=== PATIENT | female | born 2000 | race Caucasian/White ===

== ENCOUNTER 2018-04-18 18:00 | Inpatient (IN) | payer OTHER, MEDICAID ==
--- NOTE | 2018-04-18 18:48 | HP ---
General Information - Reason for Visit Spontaneous rupture of membranes at 37-4/7 weeks - General Information Maternal Age: 18 Grav: 1 Para: 0 SAB: 0 IEA: 0 Estimated Due Date: 05/05/18 Determined By: LMP Gestational Age in Weeks/Days: 37-4/7 Maternal Blood Type and Rh: A Positive - Results this Serology/RPR Result: Non-Reactive Rubella Result: Immune HBsAg Result: Negative HIV Result: Negative Past Medical History Delivery History: See Records Delivery History Comment: Primip Pertinent Past Medical History: See Records Past Medical History Comment: Childhood hx of ITP (age 5 years). Followed by serial platelet counts Pertinent Past Surgical History: None Pertinent Family History: See Records Family History Comment: Father: HTN MGM: Breast cancer - Antepartal Records Antepartal Records: Reviewed, Uncomplicated Review of Systems Constitutional: Comfortable CV Complaint: No Respiratory: Shortness of Breath: No Gastrointestinal: No Nausea/Vomiting, Normal Bowel Movement Genitourinary: Leaking Fluid - since 1709, No Dysuria, No Bleeding Musculoskeletal: No Epigastric Pain, Contractions - Mild, irregular Neurological: No Headache, No Visual Changes Movement: Normal Exam Allergies/Adverse Reactions: Allergies environmental Allergy (Unknown, Uncoded 02/02/18 23:42) Itching BP 124/98, 138/94, 135/79, 120/90 HR 100 RR 18 T 97.9 SpO2 100% on RA - Measurements Height: 5 ft Weight: 151 lb Body Mass Index (BMI): 29.5 Pre- Weight: 100 lb - Exam Breast: Breast Exam Deferred CVA: No CVA Tenderness Extremities: No Edema Heart: Normal Rhythm/Heart Sounds HEENT: No Significant Findings Lungs: Clear Bilaterally Rectal: Rectal Exam Deferred Reflexes: DTR 2+ Thyroid: No Thyromegaly - Abdominal Exam Abdomen Exam: Non-Tender - Ultrasound/Biophysical Profile Ultrasound Status: Not Done Targeted Exam Findings See L&D Outpatient Visit Provider Note for Findings: N/A Estimated Weight: EFW 6.5 lbs by Deniz Cervical Exam: 1cm Effacement: 70% Station: -1 Presenting Part: Vertex Membrane Status: SROM Amniotic Fluid Evaluation: Gross Rupture Sterile Speculum Exam: Not done Bleeding/Discharge: None EFM Findings - External Monitor Findings Baseline Heart Rate: 150 External Monitor Findings: Accelerations Present, No Pattern of Variable or Late Decelerations, Variability Moderate, Baseline Stable External Monitor Findings Comment: No evidence of metabolic acidemia Contractions: Irregular, Mild Contraction Frequency: q 4-6 min Assessment/Plan - Assessment IUP at 37-4/7 with spontaneous rupture of membranes clear fluid No evidence of metabolic acidemia Elevated BP of unknown significance - Obstetrical Risk Factors Risk Factors Comment: None - Plan Plan: Observe Plan Comment: P: Admit. Will check BP labs and follow-up per results. Continue to observe. If no onset active labor by 6-8 hours s/p SROM pt consents to augmentation PRN. Anticipate - Date/Time of Admission Date of Admission: 04/18/18 Time of Admission: 18:25
[2018-04-18 20:10] LABS: Urine Appearance Cloudy; Urine Blood Negative (Negative); Urine Color Yellow; Urine Ketones Negative (Negative); Urine Protein 1+(30 mg/dL) (Negative); Urine Red Blood Cell 2+(6-10/hpf) (Absent); Urine Specific Gravity 1.024 (1.010-1.030); Urine Urobilinogen Negative (Negative); Urine White Blood Cell Trace(0-5/hpf) (Absent)
[2018-04-18 20:19] LABS: ABS Basophils 0.1 10^3/ul (0-0.2); ABS Eosinophils 0 10^3/ul (0-0.6); ABS Lymphocytes 1.5 10^3/ul (1.0-4.8); ABS Monocytes 0.6 10^3/ul (0-0.8); ABS Neutrophils 7.2 10^3/ul (1.5-7.7); ABS Nucleated RBC 0 10^3/ul; Eosinophil % 0.3 % (0-6); Hematocrit 34 % (35-47); Hemoglobin 11.7 g/dl (12.0-16.0); Lymphocyte % 15.6 % (25-47); Mean Corpuscular HGB Conc 35 g/dl (31-36); Mean Corpuscular Hemoglobin 32 pg (27-31); Mean Corpuscular Volume 93 fL (80-97); Mean Platelet Volume 9.7 fL (7.4-10.4); Nucleated Red Blood Cells % 0.1; Platelet Count 227 10^3/ul (150-450); Red Blood Count 3.63 10^6/ul (4.00-5.40); Red Cell Distribution Width 17 % (10.5-15); White Blood Count 9.4 10^3/ul (3.5-10.8)
[2018-04-18 20:41] LABS: INR 0.81 (0.77-1.02)
[2018-04-18 20:54] LABS: EGFR Non-African American 177.6 (>60); Uric Acid 5.6 mg/dL (2.3-6.6)
[2018-04-18 21:06] LABS: Platelet Count 227 10^3/ul (150-450); Schistocytes ABSENT
--- NOTE | 2018-04-18 21:21 | PN ---
Progress Note - Progress Note Date of Service: 04/18/18 Note: S: Pt reports UCs spaced out but feel much stronger. Still leaking clear fluid. No VB or spotting. Reports +FM O: BP 122/84 HR 92 RR 16 T 97.6 FHT 140bpm. Moderate variability. +Accels. No decels UCs q 6 min VE: deferred A: IUP at 37-4/7 with SROM in early labor No evidence of metabolic acidemia P: Reassured. Discussed when we should consider a re-check of cervix in presence of rupture. Pt nervous about missing window for epidural placement. Reassurance given. Con't expectant mgmt for now.
[2018-04-19] MEDS ORDERED: OBEPIDURAL* 250 ML EPIDURAL ONE (01:56)
--- NOTE | 2018-04-19 02:27 | PN ---
Progress Note - Progress Note Date of Service: 04/19/18 Note: Late Entry/Quick Note Pt increasingly uncomfortable. Requesting pain medication. While CNM in another delivery analyst checked pt at 0120 and found her to be 3-4cm/80%/vtx -1, clear fluid. FHT 130bpm, category I. UCs q 2-5 min. RN instructed to offer pt both IV pain medication or a labor epidural. Pt requested labor epidural. CNM paged anesthesia for consult at 0145. Anesthesia at bedside for consult.
[2018-04-19] MEDS ORDERED: Famotidine TAB* 20 MG PO PRN (02:37)
[2018-04-19] MEDS ORDERED: Sodium Citrate/Citric Acid* 15 ML UDC PO PRN (02:37)
[2018-04-19] MEDS ORDERED: Phenylephrine IV* 40 MCG/ML 10 ML SYRINGE IV PUSH PRN (02:37)
[2018-04-19] MEDS ORDERED: Famotidine IV* 10 MG/ML 2 ML (20 mg) IV PRN (02:37)
[2018-04-19] MEDS ORDERED: OBEPIDURAL* 250 ML EPIDURAL SCH (03:00)
[2018-04-19] MEDS ORDERED: Oxytocin in LR* 20 UNITS/1,000 ML BAG IVPB ONE (04:34)
--- NOTE | 2018-04-19 06:01 | PN ---
Progress Note - Progress Note Date of Service: 04/19/18 Note: S: Pt comfortable s/p epidural. Able to nap. Paged to bedside by RN for review of FHT due to run of tachysystole O: BP 119/84 HR 91 T 98.4 FHT Baseline 145bpm leading into decel down to 90bpm and tracing since recovery with a baseline of 155bpm. Moderate variability. +Accels. Decel down to 90bpm x 7 min during area of tachysystole. Recovered. Occ late decels. Variability maintained UCs q 1-7 min with a coupling pattern. Area of tachysystole involved a stretch of 4 UCs in 7 min VE: 6cm/80%/vtx -1 A: IUP at 37-5/7 in labor Category II FHT P: O2 by mask, increased IV fluids, maternal position changes. Continue to monitor status closely. Dr. Arias reviewed tracing and agrees with plan at this time
--- NOTE | 2018-04-19 07:41 | PN ---
Progress Note - Progress Note Date of Service: 04/19/18 Note: S: Pt still comfortable but reports some increased pressure with UCs O: BP 124/86 HR 88 T 98.4 FHT: 145bpm. Moderate variability. +Accels. Some early type decels UCs q 2-4. Coupling and tripling seems to have resolved at this time VE: 8cm/100%/vtx -1 A: IUP at 37-5/7 in labor Cat II FHT. Doubt metabolic acidemia P: Continue to monitor maternal/ status closely. Report to Debbie Chandler CNM who will assume care at 0800
[2018-04-19] MEDS ORDERED: Bupivacaine 0.5% SDV PF* 30ML VIAL ONE (10:12)
[2018-04-19] MEDS ORDERED: Oxytocin in LR* 20 UNITS/1,000 ML BAG IVPB SCH (13:00)
[2018-04-19] MEDS ORDERED: Acetaminophen TAB* 325 MG PO PRN (14:40)
[2018-04-19] MEDS ORDERED: Glycerin ADULT SUPP PR PRN (14:40)
[2018-04-19] MEDS ORDERED: Witch Hazel PAD* JAR TOPICAL PRN (14:40)
[2018-04-19] MEDS ORDERED: Dibucaine 1% 28.35 GM TUBE PR PRN (14:40)
--- NOTE | 2018-04-19 15:11 | PROCNOTE ---
[facility] OB: Delivery Note - Delivery A Date of : 04/19/18 Time of : 14:15 [place] Sex: Female Weight at : 5 lb 12 oz Score 1 Minute: 7 Score 5 Minutes: 9 Gestational Age in Weeks and Days at Delivery: 37 Weeks and 5 Days Delivery Method: Spontaneous Vaginal Labor: Spontaneous Did Patient attempt ?: N/A, No Previous Amniotic Fluid: Clear Estimated Blood Loss: 100 Anesthesia/Analgesia: CEI for Labor Delivered By: Debbie Chandler - Nursery Level of Nursery: Regular/Bedside - Perineum Perineal Injury: Abrasion Only - Not Repaired Perineal Repair: None - Events Delivery Events of Note: Pitocin During Labor - Risk for Falls Other Risk for Falls: none - Additional Delivery Notes Additional Delivery Notes: Patient admitted with SROM and active labor. Received epidural as desired. Increased pain lead to request for anesthesia to re-bolus epidural and patient finally had excellent pain control. Progression to complete with urge to push when baby on perineum. LOL 16'52", pushed 25 min. Baby born @ 1415, OA-TAMMI and delivered to maternal lower abdomen due to short cord. HR>110. Apgars 7,9. Cord doubly clamped and cut by FOB and baby moved up to skin to skin at breast. Placenta delivered with gentle cord traction at 1422 and noted to have 3VC, membranes appear complete. Fundus firm to massage. EBL 100ml. Baby and mom stable. Baby name Susan
[2018-04-19] MEDS: Ibuprofen TAB* 600 MG PO PRN ×2 (17:41→23:44)
[2018-04-19] MEDS: Docusate CAP* 100 MG PO SCH (23:44)
[2018-04-20 07:04] LABS: ABS Basophils 0 10^3/ul (0-0.2); ABS Eosinophils 0.1 10^3/ul (0-0.6); ABS Lymphocytes 1.9 10^3/ul (1.0-4.8); ABS Monocytes 0.5 10^3/ul (0-0.8); ABS Neutrophils 7.3 10^3/ul (1.5-7.7); ABS Nucleated RBC 0 10^3/ul; Eosinophil % 0.9 % (0-6); Hematocrit 31 % (35-47); Hemoglobin 10.4 g/dl (12.0-16.0); Lymphocyte % 19.6 % (25-47); Mean Corpuscular HGB Conc 34 g/dl (31-36); Mean Corpuscular Hemoglobin 32 pg (27-31); Mean Corpuscular Volume 94 fL (80-97); Mean Platelet Volume 8.7 fL (7.4-10.4); Nucleated Red Blood Cells % 0.1; Platelet Count 169 10^3/ul (150-450); Red Blood Count 3.29 10^6/ul (4.00-5.40); Red Cell Distribution Width 17 % (10.5-15); White Blood Count 9.9 10^3/ul (3.5-10.8)
[2018-04-20] MEDS: Ibuprofen TAB* 600 MG PO PRN ×3 (07:19→20:47)
[2018-04-20] MEDS ORDERED: Ferrous Gluconate TAB* 324 MG TAB PO SCH (09:00)
[2018-04-20] MEDS: Docusate CAP* 100 MG PO SCH ×3 (09:37→20:48)
--- NOTE | 2018-04-20 15:06 | PTEDU ---
Patient Name: GARRISON SNOW GARRISON SNOW selected video: Follow Me Mum: [facility] Successful to view on 8 at 3:05:43 PM from [id number]
[2018-04-21] MEDS: Ibuprofen TAB* 600 MG PO PRN (06:47)
[2018-04-21 08:18] VITALS: BP 120/79
[2018-04-21] MEDS: Docusate CAP* 100 MG PO SCH (11:09)
== END 2018-04-21 11:30 | disposition home or self-care (01) | DRG 807 ==
LOC: MCHOBOUT 18:00 → MCHOB 18:23
PROVIDERS: ADMIT Midwife; ATTEND Midwife
PROC: 10E0XZZ Delivery of Products of Conception, External Approach (ICD-10-PCS; principal; 2018-04-19)
DX: O42.02 Full-term premature rupture of membranes, onset of labor within 24 hours of rupture (principal); Z37.0 Single live birth; O70.0 First degree perineal laceration during delivery; Z3A.37 37 weeks gestation of pregnancy
CPT/HCPCS: 36415; 80053; 81003; 81015; 84550; 85025; 85049; 85362; 85384; 85610; 85730; 86850; 86900; 86901; 87086; A9270-GY